=== PATIENT | male | born 1960 | race Caucasian/White ===

== ENCOUNTER 2023-01-27 12:57 | Observation (INO) | payer OTHER, SELFPAY ==
[2023-01-27] VITALS (9 sets, daily range): BP systolic 129–161; BP diastolic 67–86; PULSE 68–89; RESP 16–20; TEMP 36.1–37; O2SAT 95–98; BMI 41.5
--- OUTSIDE RECORDS SUMMARY | 2023-01-27 06:58 | XMS RPT_ITS | CCD ---
Author Name Unknown Address [address] [place] [address] Organization [facility] Care Team Providers Care Security Incident Response Engineer Name Role Phone PABLO AYALA, ONEIL Primary Care Physician MICHAEL AYALA, LUZ MARINA Attending Unavailable PABLO AYALA, ONEIL Primary Care Unavailable PABLO AYALA, ONEIL Primary Care Unavailable LISETH AYALA, BENNY Clemente Attending Unavailable PABLO AYALA, ONEIL Primary Care Unavailable JORGE LUIS AYALA, NEREYDA Burton Attending Unavail able MICHAEL AYALA, LUZ MARINA Attending Unavailable PABLO AYALA, ONEIL Primary Care Unavailable Medications Current Medications Medication Drug Class(es) Dates Sig (Normalized) Sig (Original) furosemide 40 mg oral tablet (2 sources) Loop Diuretic Start: 01-10-2023 take 1 tablet by mouth twice daily furosemide 40 mg oral tablet TAKE 1 TABLET BY MOUTH TWICE A DAY Start Date: 01/10/23 Status: Ordered losartan potassium 50 mg oral tablet (2 sources) Angiotensin 2 Receptor Aren Start: 01-10-2023 take 2 tablets by mouth once daily losartan 50 mg oral tablet TAKE 2 TABLETS BY MOUTH EVERY DAY. Start Date: 01/10/23 Status: Ordered tamsulosin hydrochloride 0.4 mg oral capsule (2 sources) alpha-Adrenergic Aren Start: 01-10-2023 End: 02-09-2023 Flomax 0.4 mg oral capsule Dose : 0.4 mg = 1 cap(s), PO, Daily, # 30 cap(s), 0 Refill(s) Start Date: 01/10/23 Stop Date: 02/09/23 Status: Ordered Problems Problem Classification Problem Date Documented Da te Episodic/Chronic Diabetes mellitus without complication (2 sources) Hyperglycemia, unspecified; Translations: [Hyperglycemia, unspecified] Onset: 09-15-2022 Episodic Results Test Name Value Interpretation Reference Range Facil ity Vital Signs Date Time Vital Sign Value Performing Clinician Linus diego 01-10-2023 07:23-0500 Body height 182.9 cm BENNY CHILDERS MD [facility] 01-10-2023 07:23-0500 Body temperature 98.42 [degF] BENNY CHILDERS MD [facility] 01-10-2023 07:23-0500 Body weight 134.1 kg BENNY CHILDERS MD [facility] 01-10-2023 07:23-0500 Diastolic Blood Pressure Non-Invasive 82 mm[Hg] BENNY CHILDERS MD [facility] 01-10-2023 07:23-0500 Heart rate 82 /min BENNY CHILDERS MD [facility] 01-10-2023 07:23-0500 Respiratory rate 18 /min BENNY CHILDERS MD [facility] 01-10-2023 07:23-0500 Systolic Blood Pressure Non-Invasive 201 mm[Hg] BENNY CHILDERS MD [facility] Encounters Encounter Date Encounter Type Care Provider Facility Start: 01-11-2023 End: 01-11-2023 Emergency department patient visit ONEIL SHAH MD Facility:B Start: 01-11-2023 End: 01-11-2023 Emergency department patient visit NEREYDA KANG MD [facility] Start: 01-10-2023 End: 01-10-2023 Emergency department patient visit ONIEL SHAH MD Facility:B Start: 01-10-2023 End: 01-10-2023 Emergency department patient visit BENNY CHILDERS MD [facility] Start: 09-15-2022 End: 09-20-2022 ambulatory LUZ MARINA MICHAEL MD Facility:A Start: 09-15-2022 End: 09-20-2022 Encounter for general adult medical examination without abnormal findings LUZ MARINA RODRIGUEZ MD Facility:A Procedures Date Procedure Procedure Detail Performing Clinician None (qualifier value) JOSE CHILDERS MD Payers Date Payer Category Payer Unknown [id number] 1960 Unknown [id number] 1960 Unknown [id number] 1960 Unknown [id number] 1960 Unknown [id number] Social History Date Type Detail Facility Tobacco smoking status Smokes to bacco daily (finding) [facility] Sex Assigned At Sex [facility] Functional Status Date Assessment Result Facility 01-10-2023 Functional Status Activity Status ADL Res ting [facility] Mental Status Date Assessment Result Facility 01-10-2023 Mental Status Orientation Oriented x 4 [facility] Clinical Note 01-12-2023 Note Date & Type Note Facility 01-12-2023 Note . MICRO - Microbiology PROCEDURE: Urine Culture [*1] SOURCE: Urine, Clean Catch BODY SITE: COLLECTED DATE/TIME: 01/10/2023 07:20 EST RECEIVED DATE/TIME: 01/10/2023 14:12 EST START DATE/TIME: 01/10/2023 14:12 EST FREE TEXT SOURCE: FINAL REPORTS Final Report [] Verified Date/Time/Personnel: 01/12/2023 07:28 EST No growth at 48 hours. PRELIMINARY REPORTS Preliminary Report [] Verified Date/Time/Personnel: 01/11/2023 10:32 EST No growth to date Performing Locations *1: This test was performed at: [facility], [address] [place], [address]- , [place] [facility] ([place]) Evaluation + Plan note 01-10-2023 Note Date & Type Note Facility 01-10-2023 Evaluation + Plan note Diagnostic Tests PendingUrine Culture 01/10/23 [facility] Discharge instructions 01-10-2023 Note Date & Type Note Facility 01-10-2023 Hospital Discharg e instructions Patient Education 01/10/2023 07:45:50 High Blood Pressure, Established, Out of Control Uncontrolled High Blood Pressure (Established) Your blood pressure was unusually high today. This can occur if you ve missed doses of your blood pressure medicine. Or it can happen if you are taking other medicines. These include some asthma inhalers, decongestants, diet pills, and street drugs like cocaine and amphetamine. Other causes include: Weight gain More salt in your diet Smoking Caffeine Your blood pressure can also rise if you are emotionally upset or in intense pain. It may go back to normal after a period of rest. Blood pressure measurements are given as 2 numbers. Systolic blood pressure is the upper number. This is the pressure when the heart contracts. Diastolic blood pressure is the lower number. This is the pressure when the heart relaxes between beats. You will see your blood pressure readings written together. For example, a person with a systolic pressure of 118 and a diastolic pressure of 78 will have 118/78 written in the medical record. To be high blood pressure, the numbers must be higher when tested over a period of time. Blood pressure is categorized as normal, elevated, or stage 1 or stage 2 high blood pressure: Normal blood pressure is systolic of less than 120 and diastolic of less than 80 (120/80) Elevated blood pressure is systolic of 120 to 129 and diastolic less than 80 Stage 1 high blood pressure is systolic is 130 to 139 or diastolic between 80 to 89 Stage 2 high blood pressure is when systolic is 140 or higher or the diastolic is 90 or higher Uncontrolled high blood pressure can cause serious health problems. It raises your risk for heart attack, stroke, and heart failure. In general, if you have high blood pressure, keeping your blood pressure below 130/80 mmHg may help prevent these problems. Your healthcare provider may prescribe medicine to help control blood pressure if lifestyle changes are not enough. Home care It s important to take steps to lower your blood pressure. If you are taking blood pressure medicine, the guidelines below may help you need less or no medicines in the future. Start a weight-loss program if you are overweight. Cut back on the amount of salt in your diet: oAvoid high-salt foods like olives, pickles, smoked meats, and salted potato chips. oDon t add salt to your food at the table. oUse only small amounts of salt when cooking. Start an exercise program. Talk with your healthcare provider about what exercise program is best for you. It doesn t have to be difficult. Even brisk walking for 20 minutes 3 times a week is a good form of exercise. Avoid medicines that stimulates the heart. This includes many igdd-psa-lhmgzyu cold and sinus decongestant pills and sprays, as well as diet pills. Check the warnings about high blood pressure on the label. Before purchasing any cxtf-oie-sncrrcs medicines or supplements, always ask the pharmacist about the product's potential interaction with your high blood pressure and your medicines. Stimulants such as amphetamine or cocaine could be lethal for someone with high blood pressure. Never take these. Limit how much caffeine you drink. Or switch to noncaffeinated beverages. Stop smoking. If you are a long-time smoker, this can be hard. Enroll in a stop-smoking program to make it more likely that you will succeed. Talk with your provider about ways to quit. Learn how to handle stress better. This is an important part of any program to lower blood pressure. Learn ways to relax. These include meditation, yoga, and biofeedback. If medicines were prescribed, take them exactly as directed. Missing doses may cause your blood pressure to get out of control. If you miss a dose or doses of your medicines, check with your healthcare provider or pharmacist about what to do. Consider buying an automatic blood pressure machine. Your provider may recommend a certain type. You can get one of these at most pharmacies. Measure your blood pressure twice a day, in the morning, and in the late afternoon. Keep a written record of your home blood pressure readings and take the record to your medical appointments. Here are some additional guidelines on home blood pressure monitoring from the [place] [employer]. Don't smoke or drink coffee for 30 minutes Go to the bathroom before the test. Relax for 5 minutes before taking the measurement. Sit correctly. Be sure your back is supported. Don't sit on a couch or soft chair. Uncross your feet and place them flat on the floor. Place your arm on a solid, flat surface like a table with the upper arm at heart level. Make certain the middle of the cuff is directly above the bend of the elbow. Check the monitor's instruction manual for an illustration. Take multiple readings. When you measure, take 2 or 3 readings one minute apart and record all of the results. Take your blood pressure at the same time every day, or as your healthcare provider recommends. Record the date, time, and blood pressure reading. Take the record with you to your next appointment. If your blood pressure monitor has a built-in memory, simply take the monitor with you to your next appointment. Call your provider if you have several high readings. Don't be frightened by a single high reading, but if you get several high readings, check in with your healthcare provider. Note: When blood pressure reaches a systolic (top number) of 180 or higher or a diastolic (bottom number) of 110 or higher, emergency medical treatment is required. Call your healthcare provider immediately. Follow-up care Regular visits to your own healthcare provider for blood pressure and medicine checks are an important part of your care. Make a follow-up appointment as directed. Bring the record of your home blood pressure readings to the appointment. When to seek medical advice Call your healthcare provider right away if any of these occur: Blood pressure reaches a systolic (top number) of 180 or higher or diastolic (bottom number) of 110 or higher, emergency medical treatment is required. Chest, arm, shoulder, neck, or upper back pain Shortness of breath Severe headache Throbbing or rushing sound in the ears Nosebleed Extreme drowsiness, confusion, or fainting Dizziness or dizziness with spinning sensation (vertigo) Weakness in an arm or leg or on one side of the face Trouble speaking or seeing [id number] [employer]. [address] [place] [address], [place] [address]. All rights reserved. This information is not intended as a substitute for professional medical care. Always follow your healthcare professional's instructions. 01/10/2023 07:45:10 Urinary Retention, Male Urinary Retention (Male) Urinary retention is the medical term for difficulty or inability to pass urine, even though your bladder is full. Causes The most common cause of urinary retention in men is the bladder outlet being blocked. This can be due to an enlarged prostate gland or a bladder infection. Certain medicines can also cause this problem. This condition is more likely to occur as men get older. Symptoms Common symptoms of urinary retention include: Pain (not experienced by everyone) Frequent urination Feeling that the bladder is still full after urinating Incontinence (not being able to control the release of urine) Swollen abdomen Treatment This condition is treated by inserting a tube (catheter) into the bladder to drain the urine. This provides immediate relief. The catheter may need to stay in place for a few days. The catheter has a balloon on the tip, which is inflated after insertion. This prevents the catheter from falling out. Home care If you were given antibiotics, take them until they are used up, or your healthcare provider tells you to stop. It is important to finish the antibiotics even though you feel better. This is to make sure your infection has cleared. If a catheter was left in place, it is important to keep bacteria from getting into the collection bag. Don't disconnect the catheter from the collection bag. Use a leg band to secure the drainage tube, so it does not pull on the catheter. Drain the collection bag when it becomes full using the drain spout at the bottom of the bag. Don't pull on or try to remove your catheter. This will injure your urethra. The catheter must be removed by a healthcare provider. Follow-up care Follow up with your healthcare provider, or as advised. If a catheter was left in place, it can usually be removed within 3 to 7 days. Some conditions require the catheter to stay in longer. Your healthcare provider will tell you when to return to have the catheter removed. When to seek medical advice Call your healthcare provider right away if any of these occur: Fever of 100.4 F (38 C) or higher, or as directed by your healthcare provider Bladder or lower-abdominal pain or fullness Abdominal swelling, nausea, vomiting, or back pain Blood or urine leakage around the catheter Bloody urine coming from the catheter (if a new symptom) Weakness, dizziness, or fainting Confusion or change in usual level of alertness If a catheter was left in place, return if: oCatheter falls out oCatheter stops draining for 6 hours [id number] [employer]. [address] [place] [address]. All rights reserved. This information is not intended as a substitute for professional medical care. Always follow your healthcare professional's instructions. 01/10/2023 07:45:09 Camejo Catheter, Care Camejo Catheter Care A Camejo catheter is a rubber tube that is placed through the urethra (opening where urine comes out) and into the bladder. This helps drain urine from the bladder. There is a small balloon on the end of the tube that is inflated after insertion. This keeps the catheter from sliding out of the bladder. A Camejo catheter is used to treat urinary retention (unable to pass urine). It is also used when there is incontinence (loss of bladder control). Home care Finish taking any prescribed antibiotic even if you are feeling better before then. It is important to keep bacteria from getting into the collection bag. Do not disconnect the catheter from the collection bag. Use a leg band to secure the drainage tube, so it does not pull on the catheter. Drain the collection bag when it becomes full using the drain spout at the bottom of the bag. Do not try to pull or remove your catheter. This will injure your urethra. It must be removed by your healthcare provider or nurse. Follow-up care Follow up with your healthcare provider as advised for repeat urine testing and catheter removal or replacement. When to seek medical advice Call your healthcare provider right away if any of these occur: Fever of 100.4 F (38 C) or higher, or as directed by your healthcare provider Bladder pain or fullness Abdominal swelling, nausea or vomiting, or back pain Blood or urine leakage around the catheter Bloody urine coming from the catheter (if a new symptom) Catheter falls out Catheter stops draining for 6 hours Weakness, dizziness, or fainting [id number] [employer]. [address] [place] [address]. All rights reserved. This information is not intended as a substitute for professional medical care. Always follow your healthcare professional's instructions. Follow Up Care 01/10/2023 06:58:48 With:CIARA LIU MD, [facility] Address: [address] [place] [phone] When:2-4 days With:Go to emergency room if symptoms worsen Address:Unknown When:2-4 days [facility] Clinical Note 01-10-2023 Note Date & Type Note Facility 01-10-2023 Note Discharge Instructions Thank you for allowing [facility] to assist you with your healthcare needs. The following is important discharge information regarding your hospital visit. Diagnosis from Today's Visit Oliguria What to Do Next Instructions from Your Care Team Resume your blood pressure medication. No qualifying data available. Post Acute Orders No qualifying data available. You Need to Schedule the Following Appointments Follow Up with CIARA LIU MD, [facility] When Within 2-4 days Where: [address] [place] [phone] Follow Up with Go to emergency room if symptoms worsen When Within 2-4 days Allergies [facility] Medications Please ask your primary doctor or pharmacist before taking any other medication not listed, including over the counter drugs, herbal medications, vitamins and or supplements as they may interact with your home medications. What How Much When Instructions Last Dose New tamsulosin (Flomax 0.4 mg oral capsule) 1 cap by mouth Every day Duration: 30 Days Printed Prescription Unchanged furosemide (furosemide 40 mg oral tablet) TAKE 1 TABLET BY MOUTH TWICE A DAY Unchanged losartan (losartan 50 mg oral tablet) TAKE 2 TABLETS BY MOUTH EVERY DAY. Please take this list to your next doctor s visit. Bring all medications you take, including over the counter medications, herbals and other supplements with you to your doctor s visit. Patients and families are reminded to discard old lists and to update any records with all medication providers or retail pharmacies. Medication Leaflets tamsulosin Flomax Cu l es la informaci n m s importante que colin saber sobre tamsulosin? Utilice solamente seg n lo indicado. Informe a white m dico si est utilizando otros medicamentos, si padece alguna enfermedad o si tiene alg n tipo de alergia. Qu es tamsulosin? Tamsulosin se utiliza para el tratamiento de la hiperplasia prost rachel benigna (pr stata agrandada). Tamsulosin no est aprobado para utilizarse en mujeres o ni os. Tamsulosin puede tambi n utilizarse para fines no mencionados en esta gu a del medicamento. Qu cuestiones deber a preguntar al profesional de la daniel antes de dilcia tamsulosin? No deber utilizar tamsulosin si es al rgico a laila medicamento. Informe a white m dico si alguna vez moore tenido: c ncer de la pr stata; presi n arterial baja; fior alergia a las sulfas; o enfermedad del h gado o ri n. Tamsulosin puede afectar mary pupilas. Si va a realizar fior cirug a de cataratas, informe al cirujano de que est utilizando laila medicamento. Consulte con white m dico sobre las pruebas para detectar c ncer de la pr stata antes y con el tratamiento con tamsulosin. Tamsulosin no est aprobado para utilizarse en mujeres. C mo colin dilcia tamsulosin? Siga todas las instrucciones de la etiqueta de white receta y mitali todas las gu as del medicamento u hojas de instrucci n. Utilice el medicamento exactamente jagjit viene indicado. Tamsulosin se franklin por lo general fior vez al d a, 30 minutos despu s de la misma comida cada d a. Trague la c psula entera y no la triture, mastique, rompa o rachel. Necesitar comprobar white presi n arterial con frecuencia. Si josé de utilizar laila medicamento, no vuelva a utilizarlo sin consentimiento m dico. Mantenga el medicamento isaac cerrado a temperatura ambiente, fuera de la humedad y del calor. Qu sucede si me regi fior dosis? [place] el medicamento kamara pronto pueda, adilia s ltese la dosis olvidada si ya drew es la hora de dilcia la pr xima dosis. No tome dos dosis a la vez. Si josé de utilizar laila medicamento por varios d as seguidos, no vuelva a utilizarlo sin consentimiento m dico. Qu sucede si beti fior sobredosis? Busque atenci n m dica de emergencia o llame a la l leny de [facility] al . Qu colin evitar mientras beti tamsulosin? Evite manejar o realizar actividades peligrosas antes de saber c mo puede afectarle laila medicamento, ya que mary reacciones podr an verse afectadas. Evite levantarse muy r pido si est sentado o acostado, ya que puede sentirse mareado. Cu les son los posibles efectos secundarios de tamsulosin? Busque atenci n m dica de emergencia si observa signos de fior reacci n al rgica (ronchas, dificultad para respirar, hinchaz n en la crys o garganta) o fior reacci n grave en la piel (fiebre, dolor de garganta, quemaz n en los ojos, dolor en la piel, sarpullido owusu o p rpura con ampollas y descamaci n). Es posible que tamsulosin reduzca white presi n arterial y cause mareos o desmayo, especialmente cuando comience a tomarla o white dosis cambia. Deje de utilizar tamsulosin y llame a white m dico de inmediato si tiene: sensaci n de desvanecimiento, jagjit si se fuese a desmayar; o fior erecci n dolorosa que dure 4 horas o m s. Los efectos secundarios comunes pueden incluir: eyaculaci n anormal, reducci n en la cantidad de semen; mareos, somnolencia, debilidad; nariz mocosa o congestionada, dolor de garganta, tos; dolor de espalda, dolor de pecho, dolor de nicole; n useas, diarrea; problemas en los dientes; visi n borrosa; problemas para dormir (insomnio); o disminuci n del inter s en las relaciones sexuales. Esta lista no incluye todos los efectos secundarios y es posible que aparezcan otros s ntomas. Llame a white m dico para obtener consejos e informaci n m dica relacionada con estos efectos secundarios. Tambi n puede informar acerca de efectos secundarios llamando al FDA al [phone]. Qu otros f rmacos afectar n a tamsulosin? A veces no es seguro utilizar determinados medicamentos al mismo tiempo. Algunos f rmacos pueden afectar a los niveles sangu neos de los otros medicamentos que est utilizando, lo que podr a aumentar los efectos secundarios o hacer que dichos medicamentos fuesen menos eficaces. Informe a white m dico sobre los medicamentos que franklin actualmente. Muchos f rmacos pueden afectar a tamsulosin, especialmente: cimetidine; medicamentos para tratar la impotencia o la hipertensi n arterial pulmonar--avanafil (Stendra), sildenafil (Viagra, Revatio), tadalafil (Adcirca, Cialis), o vardenafil (Levitra, Staxyn); o f rmacos para el tratamiento de la presi n arterial santa o para un trastorno de la pr stata--alfuzosin, doxazosin, prazosin, terazosin, silodosin. Esta lista no est completa, puesto que muchos otros f rmacos pueden afectar a tamsulosin. Quinn[place]ec incluye los medicamentos obtenidos con o sin receta, vitaminas y productos herbarios. No todas las interacciones posibles se enumeran aqu . D nde puedo obtener m s informaci n? White m dico o farmac utico puede ofrecerle m s informaci n acerca de tamsulosin. Recuerde, mantenga sta y todas las otras medicinas fuera del alcance de los ni os, no comparta nunca mary medicinas con otros, y use laila medicamento solo para la condici n por la que fue recetada. Se moore hecho todo lo posible para que la informaci n que proviene de [employer]') sea precisa, actual, y completa, adilia no se hace garant a de margie. La informaci n sobre el medicamento incluida aqu puede tener nuevas recomendaciones. La informaci n preparada por [employer] se moore creado para uso del profesional de la daniel y para el consumidor en los [place] de [facility] [place] y por lo cual [employer] no certifica que el uso fuera de los [place] sea apropiado, a menos que se mencione espec ficamente lo cual. La informaci n de [employer] sobre drogas no sanciona drogas, ni diagn stica al paciente o recomienda terapia. La informaci n de [employer] sobre drogas sirve jagjit fior tegan de informaci n dise ada para la ayuda del profesional de la daniel licenciado en el cuidado de mary pacientes y/o para servir al consumidor que reciba laila servicio jagjit un suplemento a, y no jagjit sustituto de la competencia, experiencia, conocimiento y opini n del profesional de la daniel. La ausencia en allan de fior advertencia para fior droga o combinaci n de drogas no debe, de ninguna forma, interpretarse jagjit que la droga o la combinaci n de drogas radha seguras, efectivas, o apropiadas para cualquier paciente. [employer] no se responsabiliza por kait n aspecto del cuidado m dico que reciba con la ayuda de la informaci n que proviene de [employer]. La informaci n incluida aqu no se moore creado con la intenci n de cubrir todos los usos posibles, instrucciones, precauciones, advertencias, interacciones con otras drogas, reacciones al rgicas, o efectos secundarios. Si usted tiene alguna pregunta acerca de las drogas que est tomando, consulte con white m dico, enfermera, o farmac utico. Copyright 5281-9438 [employer]. Versi n: 11.. Revisado: 04/29/2022. tamsulosin (luna alberto FER sin) Flomax What is the most important information I should know about tamsulosin? Use only as directed. Tell your doctor if you use other medicines or have other medical conditions or allergies. What is tamsulosin? Tamsulosin is used to treat symptoms of benign prostatic hyperplasia (enlarged prostate). Tamsulosin is not approved for use in women or children. Tamsulosin may also be used for purposes not listed in this medication guide. What should I discuss with my healthcare provider before taking tamsulosin? You should not use tamsulosin if you are allergic to it. Tell your doctor if you have ever had: prostate cancer; low blood pressure; an allergy to sulfa drugs; or liver or kidney disease. Tamsulosin can affect your pupils. If you have cataract surgery, tell the surgeon you use this medicine. Ask your doctor about prostate cancer screening before and while taking tamsulosin. Tamsulosin is not approved for use in women. How should I take tamsulosin? Follow all directions on your prescription label and read all medication guides or instruction sheets. Use the medicine exactly as directed. Tamsulosin is usually taken once a day, within 30 minutes after the same meal each day. Swallow the capsule whole and do not crush, chew, break, or open it. Your blood pressure will need to be checked often. If you stop using this medicine, do not start it again without your doctor's advice. Store tightly closed at room temperature, away from moisture and heat. What happens if I miss a dose? Take the medicine as soon as you can, but skip the missed dose if it is almost time for your next dose. Do not take two doses at one time. If you stop using this medicine for several days in a row, do not start it again without your doctor's advice. What happens if I overdose? Seek emergency medical attention or call the Poison Help line at . What should I avoid while taking tamsulosin? Avoid driving or hazardous activity until you know how this medicine will affect you. Your reactions could be impaired. Avoid getting up too fast from a sitting or lying position, or you may feel dizzy. What are the possible side effects of tamsulosin? Get emergency medical help if you have signs of an allergic reaction (hives, difficult breathing, swelling in your face or throat) or a severe skin reaction (fever, sore throat, burning eyes, skin pain, red or purple skin rash with blistering and peeling). Tamsulosin may lower your blood pressure and may cause dizziness or fainting, especially when you first start taking it or your dose changes. Stop using tamsulosin and call your doctor at once if you have: a light-headed feeling, like you might pass out; or a painful erection that lasts 4 hours or longer. Common side effects may include: abnormal ejaculation, decreased amount of semen; dizziness, drowsiness, weakness; runny or stuffy nose, sore throat, cough; back pain, chest pain, headache; nausea, diarrhea; tooth problems; blurred vision; sleep problems (insomnia); or decreased interest in sex. This is not a complete list of side effects and others may occur. Call your doctor for medical advice about side effects. You may report side effects to FDA at 1-462-XYU-5953. What other drugs will affect tamsulosin? Sometimes it is not safe to use certain medicines at the same time. Some drugs can affect your blood levels of other drugs you use, which may increase side effects or make the medicines less effective. Tell your doctor about all your current medicines. Many drugs can affect tamsulosin, especially: cimetidine; medicine to treat impotence or pulmonary arterial hypertension--avanafil (Stendra), sildenafil (Viagra, Revatio), tadalafil (Adcirca, Cialis), or vardenafil (Levitra, Staxyn); or drugs to treat high blood pressure or a prostate disorder--alfuzosin, doxazosin, prazosin, terazosin, silodosin. This list is not complete and many other drugs may affect tamsulosin. This includes prescription and rvuo-gdd-bcmkrea medicines, vitamins, and herbal products. Not all possible drug interactions are listed here. Where can I get more information? Your doctor or pharmacist can provide more information about tamsulosin. Remember, keep this and all other medicines out of the reach of children, never share your medicines with others, and use this medication only for the indication prescribed. Every effort has been made to ensure that the information provided by [employer]. ('[employer]') is accurate, up-to-date, and complete, but no guarantee is made to that effect. Drug information contained herein may be time sensitive. [employer] information has been compiled for use by healthcare practitioners and consumers in the [place] and therefore [employer] does not warrant that uses outside of the [place] are appropriate, unless specifically indicated otherwise. [employer]'s drug information does not endorse drugs, diagnose patients or recommend therapy. [employer] drug information is an informational resource designed to assist licensed healthcare practitioners in caring for their patients and/or to serve consumers viewing this service as a supplement to, and not a substitute for, the expertise, skill, knowledge and judgment of healthcare practitioners. The absence of a warning for a given drug or drug combination in no way should be construed to indicate that the drug or drug combination is safe, effective or appropriate for any given patient. [employer] does not assume any responsibility for any aspect of healthcare administered with the aid of information [employer] provides. The information contained herein is not intended to cover all possible uses, directions, precautions, warnings, drug interactions, allergic reactions, or adverse effects. If you have questions about the drugs you are taking, check with your doctor, nurse or pharmacist. Copyright 8433-7252 [employer]. Version: 11.. Revision Date: 04/29/2022. Education Materials Uncontrolled High Blood Pressure (Established) Your blood pressure was unusually high today. This can occur if you ve missed doses of your blood pressure medicine. Or it can happen if you are taking other medicines. These include some asthma inhalers, decongestants, diet pills, and street drugs like cocaine and amphetamine. Other causes include: Weight gain More salt in your diet Smoking Caffeine Your blood pressure can also rise if you are emotionally upset or in intense pain. It may go back to normal after a period of rest. Blood pressure measurements are given as 2 numbers. Systolic blood pressure is the upper number. This is the pressure when the heart contracts. Diastolic blood pressure is the lower number. This is the pressure when the heart relaxes between beats. You will see your blood pressure readings written together. For example, a person with a systolic pressure of 118 and a diastolic pressure of 78 will have 118/78 written in the medical record. To be high blood pressure, the numbers must be higher when tested over a period of time. Blood pressure is categorized as normal, elevated, or stage 1 or stage 2 high blood pressure: Normal blood pressure is systolic of less than 120 and diastolic of less than 80 (120/80) Elevated blood pressure is systolic of 120 to 129 and diastolic less than 80 Stage 1 high blood pressure is systolic is 130 to 139 or diastolic between 80 to 89 Stage 2 high blood pressure is when systolic is 140 or higher or the diastolic is 90 or higher Uncontrolled high blood pressure can cause serious health problems. It raises your risk for heart attack, stroke, and heart failure. In general, if you have high blood pressure, keeping your blood pressure below 130/80 mmHg may help prevent these problems. Your healthcare provider may prescribe medicine to help control blood pressure if lifestyle changes are not enough. Home care It s important to take steps to lower your blood pressure. If you are taking blood pressure medicine, the guidelines below may help you need less or no medicines in the future. Start a weight-loss program if you are overweight. Cut back on the amount of salt in your diet: oAvoid high-salt foods like olives, pickles, smoked meats, and salted potato chips. oDon t add salt to your food at the table. oUse only small amounts of salt when cooking. Start an exercise program. Talk with your healthcare provider about what exercise program is best for you. It doesn t have to be difficult. Even brisk walking for 20 minutes 3 times a week is a good form of exercise. Avoid medicines that stimulates the heart. This includes many vark-ven-idsiows cold and sinus decongestant pills and sprays, as well as diet pills. Check the warnings about high blood pressure on the label. Before purchasing any bakf-ncm-smyyjfj medicines or supplements, always ask the pharmacist about the product's potential interaction with your high blood pressure and your medicines. Stimulants such as amphetamine or cocaine could be lethal for someone with high blood pressure. Never take these. Limit how much caffeine you drink. Or switch to noncaffeinated beverages. Stop smoking. If you are a long-time smoker, this can be hard. Enroll in a stop-smoking program to make it more likely that you will succeed. Talk with your provider about ways to quit. Learn how to handle stress better. This is an important part of any program to lower blood pressure. Learn ways to relax. These include meditation, yoga, and biofeedback. If medicines were prescribed, take them exactly as directed. Missing doses may cause your blood pressure to get out of control. If you miss a dose or doses of your medicines, check with your healthcare provider or pharmacist about what to do. Consider buying an automatic blood pressure machine. Your provider may recommend a certain type. You can get one of these at most pharmacies. Measure your blood pressure twice a day, in the morning, and in the late afternoon. Keep a written record of your home blood pressure readings and take the record to your medical appointments. Here are some additional guidelines on home blood pressure monitoring from the [place] [employer]. Don't smoke or drink coffee for 30 minutes Go to the bathroom before the test. Relax for 5 minutes before taking the measurement. Sit correctly. Be sure your back is supported. Don't sit on a couch or soft chair. Uncross your feet and place them flat on the floor. Place your arm on a solid, flat surface like a table with the upper arm at heart level. Make certain the middle of the cuff is directly above the bend of the elbow. Check the monitor's instruction manual for an illustration. Take multiple readings. When you measure, take 2 or 3 readings one minute apart and record all of the results. Take your blood pressure at the same time every day, or as your healthcare provider recommends. Record the date, time, and blood pressure reading. Take the record with you to your next appointment. If your blood pressure monitor has a built-in memory, simply take the monitor with you to your next appointment. Call your provider if you have several high readings. Don't be frightened by a single high reading, but if you get several high readings, check in with your healthcare provider. Note: When blood pressure reaches a systolic (top number) of 180 or higher or a diastolic (bottom number) of 110 or higher, emergency medical treatment is required. Call your healthcare provider immediately. Follow-up care Regular visits to your own healthcare provider for blood pressure and medicine checks are an important part of your care. Make a follow-up appointment as directed. Bring the record of your home blood pressure readings to the appointment. When to seek medical advice Call your healthcare provider right away if any of these occur: Blood pressure reaches a systolic (top number) of 180 or higher or diastolic (bottom number) of 110 or higher, emergency medical treatment is required. Chest, arm, shoulder, neck, or upper back pain Shortness of breath Severe headache Throbbing or rushing sound in the ears Nosebleed Extreme drowsiness, confusion, or fainting Dizziness or dizziness with spinning sensation (vertigo) Weakness in an arm or leg or on one side of the face Trouble speaking or seeing 5824-[address] [employer] [place] [address]. All rights reserved. This information is not intended as a substitute for professional medical care. Always follow your healthcare professional's instructions. Urinary Retention (Male) Urinary retention is the medical term for difficulty or inability to pass urine, even though your bladder is full. Causes The most common cause of urinary retention in men is the bladder outlet being blocked. This can be due to an enlarged prostate gland or a bladder infection. Certain medicines can also cause this problem. This condition is more likely to occur as men get older. Symptoms Common symptoms of urinary retention include: Pain (not experienced by everyone) Frequent urination Feeling that the bladder is still full after urinating Incontinence (not being able to control the release of urine) Swollen abdomen Treatment This condition is treated by inserting a tube (catheter) into the bladder to drain the urine. This provides immediate relief. The catheter may need to stay in place for a few days. The catheter has a balloon on the tip, which is inflated after insertion. This prevents the catheter from falling out. Home care If you were given antibiotics, take them until they are used up, or your healthcare provider tells you to stop. It is important to finish the antibiotics even though you feel better. This is to make sure your infection has cleared. If a catheter was left in place, it is important to keep bacteria from getting into the collection bag. Don't disconnect the catheter from the collection bag. Use a leg band to secure the drainage tube, so it does not pull on the catheter. Drain the collection bag when it becomes full using the drain spout at the bottom of the bag. Don't pull on or try to remove your catheter. This will injure your urethra. The catheter must be removed by a healthcare provider. Follow-up care Follow up with your healthcare provider, or as advised. If a catheter was left in place, it can usually be removed within 3 to 7 days. Some conditions require the catheter to stay in longer. Your healthcare provider will tell you when to return to have the catheter removed. When to seek medical advice Call your healthcare provider right away if any of these occur: Fever of 100.4 F (38 C) or higher, or as directed by your healthcare provider Bladder or lower-abdominal pain or fullness Abdominal swelling, nausea, vomiting, or back pain Blood or urine leakage around the catheter Bloody urine coming from the catheter (if a new symptom) Weakness, dizziness, or fainting Confusion or change in usual level of alertness If a catheter was left in place, return if: oCatheter falls out oCatheter stops draining for 6 hours 8973-0856 [employer]. [address] [place] [address]. All rights reserved. This information is not intended as a substitute for professional medical care. Always follow your healthcare professional's instructions. Camejo Catheter Care A Camejo catheter is a rubber tube that is placed through the urethra (opening where urine comes out) and into the bladder. This helps drain urine from the bladder. There is a small balloon on the end of the tube that is inflated after insertion. This keeps the catheter from sliding out of the bladder. A Camejo catheter is used to treat urinary retention (unable to pass urine). It is also used when there is incontinence (loss of bladder control). Home care Finish taking any prescribed antibiotic even if you are feeling better before then. It is important to keep bacteria from getting into the collection bag. Do not disconnect the catheter from the collection bag. Use a leg band to secure the drainage tube, so it does not pull on the catheter. Drain the collection bag when it becomes full using the drain spout at the bottom of the bag. Do not try to pull or remove your catheter. This will injure your urethra. It must be removed by your healthcare provider or nurse. Follow-up care Follow up with your healthcare provider as advised for repeat urine testing and catheter removal or replacement. When to seek medical advice Call your healthcare provider right away if any of these occur: Fever of 100.4 F (38 C) or higher, or as directed by your healthcare provider Bladder pain or fullness Abdominal swelling, nausea or vomiting, or back pain Blood or urine leakage around the catheter Bloody urine coming from the catheter (if a new symptom) Catheter falls out Catheter stops draining for 6 hours Weakness, dizziness, or fainting [id number] [employer]. [address] [place] [address]. All rights reserved. This information is not intended as a substitute for professional medical care. Always follow your healthcare professional's instructions. Additional Information VACCINATE! IT SAVES LIVES! Members of the community who have not yet received the COVID-19 vaccine and would like to receive it can visit one of [facility] vaccine clinics. There are many vaccine clinic locations within the [facility]. For locations and available times, please visit [email or web address] It is important to note that some COVID mobile vaccine clinics are held outdoors and may be canceled in rainy or stormy conditions. To learn more about pediatric vaccinations (ages 5-11), we invite you to visit the [facility] webpage. [email or web address] To learn more about the COVID-19 vaccine, we invite you to visit the CDC website for a list of frequently asked questions. https://www.cdc.gov/coronavirus/2019-n cov/vaccines/faq.html [employer] Patient Portal Access Instructions: Stay connected with your healthcare team and access your personal medical information anytime with the [employer] Patient Portal. If you would like a full copy of your medical records please contact the [facility] Medical Records Department Monday through Gerardo between 8a.m. and 4:30p.m. Please follow the directions below to access the portal: 1.Access the email account you provided upon registration to the [facility].2.Look for an invitation email from [facility].3.Open the email and access the invitation link: Accept Invitation to [employer]4.Fill in the required burgess to create your account. Sign into [email or web address] with your username and password that you created in the above steps to stay up to date. You can then view a summary of results, a summary of your visits, and the ability to download your summaries to your computer or send the information securely to a physician. Remember that your healthcare information is confidential, so carefully consider who you will allow to register on the [employer] Patient Portal for access to your information. You can also access the [employer] Patient Portal on the [employer]. Simply click on Health Records under Health Data and then click on the [employer] logo. HOW TO SAFELY DISPOSE OF PRESCRIPTION MEDICATIONS Please use one of the following methods to safely dispose of your unused medications. 1.Use a drug disposal kit: the drug disposal pouch allows you to safely discard your old and unused drugs. Ask your nurse to give you one when you are discharged.2.Visit a local take-back location: Many local pharmacies and police departments have programs that collect old and unwanted prescription drugs. Call your local pharmacy or go to http://[email or web address].com/9Q7Rv6g to find one close to you.3.Make use of household items: Use cat litter or old coffee grounds to dispose medications if other options are not available. Mix your drugs with these household products, seal them in an airtight container and throw it into the garbage. Call [facility]: [phone] to be sure your drugs can be disposed of in this way. Some medicines may require a different approach.4.Never flush your medications down the toilet. IF YOU HAVE BEEN PRESCRIBED AN OPIOIDS FOR PAIN If you have been prescribed an opioid (such as hydrocodone, oxycodone or morphine), it is critical to understand the possible side effects and risks of opioid pain medications. Even when taken as directed, opioids can have several side effects including: Tolerance, meaning you might need to take more of a medication for the same pain relief. Nausea, vomiting and/or constipation. Sleepiness, dizziness, dry mouth, confusion, depression or itching. Physical dependence, meaning you have withdrawal symptoms when a medication is stopped ? this can develop within a few days. KNOW YOUR RESPONSIBILITIES It is important to know exactly how much and how often to take the opioid pain medications you are prescribed. Never take opioids in higher amounts or more often than prescribed. Do not combine opioids with alcohol or other drugs that cause drowsiness, such as benzodiazepines, also known as benzos, including diazepam and alprazolam, muscle relaxants or sleep aids. Never sell or share prescription opioids. This is illegal. Store opioids in a secure place and out of reach of others (including children, family, friends and visitors). The last page(s) of this document has been signed and retained as a CHART COPY Signatures Patient Education Materials High Blood Pressure, Established, Out of Control Urinary Retention, Male Camejo Catheter, Care Medication Leaflets tamsulosin, tamsulosin My discharge plan and instructions have been reviewed and explained to me and I,EDIL RANDOLPH understand my current condition and have read and understand these discharge instructions. I have received a written copy of the plan/instructions. If I have questions, I am aware that I should contact my doctor. Patient/Quality Improvement Consultant Signature: _ Date/Time: Relationship to Patient: Witness Name/Signature: Date/Time: [facility] course Narrative Note Date & Type Note Facility Hospital course Narrative No data available for this section [facility] Hospital Discharge instructions Note Date & Type Note Facility Hospital Discharge instructions No data available for this section [facility] Progress note Note Date & Type Note Facility Progress note No data available for this section [facility] Summary Purpose Family History No Family History Records FoundNo Family History Records Found No data available for this section No data available for this section No Family History Records Found Advance Directives No Advanced Directives Records FoundNo Advanced Directives Records FoundNo Advanced Directives Records Found Additional Source Comments (unrecognized sect ion and content) No Status Records FoundNo Status Records FoundNo Status Records Found INFORMATION SOURCE (unrecogn ized section and content) DATE CREATED AUTHOR AUTHOR'S ORGANIZ ATION 03/17/2021 [facility] DATE CREATED AUTHOR AUTHOR'S ORGANIZ ATION 01/17/2023 [facility] ([place]) Patient Care team informatio n (unrecognized section and content) Care Team Personnel Name: ONEIL SHAH MD Position: Physician Member Role: Primary Care Physician Address: Address: [address] [place] [address] Name: OLGA Beyer Position: RN Member Role: ED RN Name: BENNY CHILDERS MD Position: ED Physician Member Role: Attending Physician Address: Address: [address] Care Team Related Persons Name: GIUSEPPE RANDOLPH Address: [place] [address] [place] Name: ZHENG RANDOLPH Address: Home [address] [place] [address] Care Team Personnel Name: ONEIL SHAH MD Position: Physician Member Role: Primary Care Physician Address: Address: [address] [place] [address] Care Team Related Persons Name: GIUSEPPE RANDOLPH Address: Home [address] [place] [address] Name: ZHENG RANDOLPH Address: [address] FOR RECORDS PERTAINING TO PATIENTS WHO ARE OR HAVE BEEN ENROLLED IN A CHEMICAL DEPENDENCY/SUBSTANCEABUSE PROGRAM, SOME INFORMATION MAY BE OMITTED. This clinical summary was aggregated from multiple sources. Caution should be exercised in using it in the provision of clinical care. This summary normalizes information from multiple sources, and as a consequence, information in this document may materially change the coding, format and clinical context of patient data. In addition, data may be omitted in some cases. CLINICAL DECISIONS SHOULD BE BASED ON THE PRIMARY CLINICAL RECORDS. [employer] [facility]. provides no warranty or guarantee of the accuracy or completeness of information in this document.
--- NOTE | 2023-01-27 07:05 | EKG12_ITS ---
Test Reason : PRE OP Blood Pressure : / mmHG Vent. Rate : 084 BPM Atrial Rate : 084 BPM P-R Int : 140 ms QRS Dur : 148 ms QT Int : 384 ms P-R-T Axes : 064 066 038 degrees QTc Int : 453 ms Sinus rhythm with Premature supraventricular complexes Right bundle branch block Abnormal ECG No previous ECGs available Confirmed by TAMI AYALA, ASHLEY ([id number]), commercial production editor ALEXANDREA GALLARDO ([id number]) on 02/07/2023 10:17:27 AM Referred By: Rodrigo Courtney Confirmed By:ASHLEY GARRETT MD
[2023-01-27] MEDS: Lactated Ringers 1,000 ML 15 ML IV ×2 (07:16→11:19)
[2023-01-27 07:25] LABS: Hematocrit 42.5 % (40-54); Hemoglobin 14.4 g/dL (13.0-16.5); Mean Corp Hgb Conc 33.9 g/dL (32-36); Mean Corpuscular Hgb 31.6 pg (27.0-32.0); Mean Corpuscular Volume 93.4 fL (80-94); Mean Platelet Vol. 11.2 fl (6.2-12.0); Platelet Count 194 K/mm3 (150-450); RBC Distribution Width CV 12.9 % (11.6-14.6); RBC Distribution Width SD 44.2 fl (35.1-43.9); Red Blood Count 4.55 M/mm3 (4.6-6.2); White Blood Count 7.6 K/mm3 (4.4-11.0)
[2023-01-27 07:38] LABS: Anion Gap 4 (5-15); BUN 27 mg/dL (7-18); BUN/Creat Ratio 27.8 RATIO (10-20); Calcium,Total 9.3 mg/dL (8.5-10.1); Chloride 108 mmol/L (98-107); Creatinine, Serum 0.97 mg/dL (0.70-1.30); EST Glomerular Filtration Rate 83 mL/min (>60); Est Glom Filt Rate - Afr Amer 100 mL/min (>60); Estimated Creatinine Clearance 85.56 ml/min; Glucose 113 mg/dL (74-106); Potassium 4.2 mmol/L (3.5-5.1); Sodium Level 138 mmol/L (136-145)
--- NOTE | 2023-01-27 08:50 | PROS_PTH ---
PATHOLOGY RESULTS PATIENT: EDIL RANDOLPH LOC: MS3 U#:[id number] AGE/SX: 62/M ROOM: IA315 RE01/27/[address]: Dr. Rodrigo Courtney MD : 1960 BED: 1 DIS: 01/28/2023 SPEC #: [id number] RECD: 01/27/23 12:32 STATUS: BRO AGOSTO #: [id number] JAVAN: 01/27/23 08:[address]: Rodrigo Courtney DEPT: SURGICAL PATHOLOGY RECD BY: Jennifer Cortez ENTERED: 01/27/23 12:33 SP TYPE: TURP OTHR DR: LUZ MARINA RODRIGUEZ MD Tissues: Prostate, NOS Procedures: Surgery Specimen Level IV HEADER OPERATION: Transurethral resection of prostate with Olymp[employer] PRE-OP DIAGNOSIS: BPH TISSUE SUBMITTED: Prostate tissue MICROSCOPIC DIAGNOSIS Prostate tissue, transurethral resection: Benign prostatic hyperplasia, glandular and stromal type. Chronic inflammation. SJ:chilango 01/31/2023 MICROSCOPIC DESCRIPTION Slides are reviewed. GROSS DESCRIPTION Received is one container labeled with the patient's name and designated prostate tissue. The specimen consists of multiple irregular fragments of pink-kamara, rubbery, soft tissue that in aggregate weigh 7.7 gm and measure in aggregate 4.5 x 4.0 x 2.0 cm. The entire specimen is submitted in eight cassettes. / TIM:chilango 01/27/2023 TC:5 CPT: 06932
[2023-01-27] MEDS: Cefazolin 2 GM in 0.9% Normal Saline (100mL Bag) 100 ML IV (09:49)
--- NOTE | 2023-01-27 09:58 | DCINST_ITS ---
Discharge Instructions Diet Discharge Diet: No restrictions Activity Discharge Activity: Return to Normal Activity and May Not Drive (while taking narcotic pain medications.) Dressing / Incision Call your doctor if you observe: Fever of 101 or Higher Follow Up Care Please Follow Up With: Rodrigo Courtney MD When: Call [phone] for an appointment Test Results: Test results from this visit will be discussed in further detail at your follow- up appointment, if applicable. Discharge Plan Admission Primary Reason for Your Visit: Transurethral section of prostate Attending Provider: Rodrigo Courtney Primary Care Provider: LUZ MARINA RODRIGUEZ Discharge Orders/Prescriptions Prescriptions: New ciprofloxacin HCl [Cipro] 500 mg tablet 500 mg PO BID Qty: 10 0RF Continued losartan 50 mg tablet 50 mg PO BID Patient Comments: TAKE 2 TABLETS BY MOUTH EVERY DAY. tamsulosin 0.4 mg capsule 0.4 mg PO BID Patient Comments: TAKE 1 CAPSULE BY MOUTH DAILY Referrals / Follow Up: LUZ MARINA RODRIGUEZ MD [Primary Care Provider] - Rodrigo Courtney MD [Med Staff - Active Staff] - Disposition Disposition (needs filled in before D/C Order can be placed): Home, Self Care
--- NOTE | 2023-01-27 09:58 | PCM.HP.STD ---
HPI - General General Date of Service: 01/27/23 Chief Complaint: BPH with incomplete emptying and retention of urine HPI Narrative EDIL RANDOLPH, is a 62 M who presents plan to proceed with a transurethral resection of prostate PFS Medical History Alcohol use Back pain Cellulitis DDD (degenerative disc disease) High cholesterol History of echocardiogram History of edema Hypertension Injury of back Prostate disease Shortness of breath on exertion Smoker Wears glasses Home Medications losartan 50 mg tablet 50 mg PO BID 01/18/23 [History Last Taken Unknown] tamsulosin 0.4 mg capsule 0.4 mg PO BID 01/18/23 [History Last Taken Unknown] ciprofloxacin HCl 500 mg tablet (Cipro) 500 mg PO BID #10 tabs 01/27/23 [Rx Last Taken Unknown] Allergy/AdvReac Type Severity Reaction Status Date / Time No Known Allergies Allergy Verified 01/27/23 07:04 Surgical History Hx of colonoscopy Hx of total hip arthroplasty Social History Smoking Status: Current every day smoker tobacco type: cigarettes Vital Signs Vital Signs Vital Signs: 01/27/23 07:12 01/27/23 07:12 Temperature 97.1 F L Temperature Source Temporal Pulse Rate 87 Respiratory Rate 17 Respiratory Pattern Normal Blood Pressure 160/71 H Blood Pressure Mean 100 Blood Pressure Source Monitor Blood Pressure Position Semi-Fowlers Blood Pressure Location Left Arm Pulse Ox 96 Oxygen Delivery Method Room Air Weight Weight: 138.8 kg Body Mass Index (BMI) 41.5 Results Lab / Micro Data 01/27/23 07:15 01/27/23 07:15 Labs: Laboratory Results - last 24 hr 01/27/23 07:15: WBC 7.6, RBC 4.55 L, Hgb 14.4, Hct 42.5, MCV 93.4, MCH 31.6, MCHC 33.9, RDW Std Deviation 44.2 H, RDW Coeff of Lisa 12.9, Plt Count 194, MPV 11.2, Sodium 138, Potassium 4.2, Chloride 108 H, Carbon Dioxide 26.0, Anion Gap 4 L, BUN 27 H, Creatinine 0.97, Estim Creat Clear Calc 85.56, Est GFR (MDRD) Af Amer 100, Est GFR (MDRD) Non-Af 83, BUN/Creatinine Ratio 27.8 H, Glucose 113 H, Calcium 9.3
--- NOTE | 2023-01-27 10:37 | OP.PCM_ITS ---
Report of Operation Date of Procedure: 01/27/23 Pre-Operative Diagnosis: BPH with obstruction and incomplete bladder emptying Post-Operative Diagnosis: Same Surgery/Procedure Performed:: Transurethral section of prostate Description of Surgical Findings:: In the preoperative setting I discussed with the patient how the surgery would be done with expect afterwards. We discussed how a prostate resection is done and we discussed the risk of the surgery including, bleeding, infection, retrograde ejaculation, changes with ejaculation or intercourse,. We discussed the possibility that the resection of the prostate may not alleviate his urinary symptoms. We discussed the small risk of developing scar tissue along the urethral channel and strictures. We also discussed the chance of the prostate could grow back and he may need further surgery or treatment in the future for prostate problems. Patient was taken back to the operating room, timeout procedure was performed, he was identified and marked and placed on the operating room table. He underwent general anesthesia. He was placed in dorsolithotomy position. Penis and testicles were prepped and draped in usual sterile fashion. Went into the bladder using the visual obturator with a resectoscope. Once inside the bladder identified the right and left ureteral orifice. I then identified the prostate and the anatomy of the prostate. I marked out the area of the sphincter and the verumontanum was identified. I then proceeded with the prostate resection first resected the median lobe. And then resected the right lobe of the prostate. Then to resect the left lobe of the prostate. I then resected the apical tissue of the prostate. This was a complete resection of all obstructive tissue to improve voiding and relieve obstruction. I then made sure that there was no injury to the sphincter or the verumontanum was still intact. At the end of the resection all the chips were Ellik out of the bladder. I then identified the left and right ureteral orifice and these were confirmed to be in good position and effluxing and not injured. The resectoscope was removed, a 22 [place] catheter was placed into the bladder on continuous irrigation. And the urine was fairly light pink color and draining normally. He was taken back to the PACU in good condition. CPT 29409 Surgeon: Rodrigo Courtney Type of Anesthesia: General Drains: 22 [place] three-way [place]
[2023-01-27] MEDS: Ketorolac 15 MG/ML Vial IV ×2 (11:25→17:31)
[2023-01-27] MEDS: 0.9% Normal Saline (1000mL) 1,000 ML 125 ML IV ×2 (12:10→17:30)
[2023-01-27] MEDS: Ciprofloxacin 400 MG/200 ML BAG 200 MG IV ×2 (13:01→21:37)
[2023-01-27] MEDS: Losartan Potassium 50 MG Tablet PO (17:32)
[2023-01-27] MEDS: Docusate Sodium 100 MG Capsule 200 MG PO (21:37)
[2023-01-28 00:40] VITALS: BP 138/73; PULSE 69; RESP 18; TEMP 36.5; O2SAT 97
[2023-01-28] MEDS: Ketorolac 15 MG/ML Vial IV ×3 (00:48→11:52)
[2023-01-28] MEDS: 0.9% Normal Saline (1000mL) 1,000 ML 125 ML IV ×2 (01:48→10:08)
[2023-01-28 05:45] VITALS: BP 152/73; PULSE 64; RESP 16; TEMP 36.4; O2SAT 97
--- NOTE | 2023-01-28 09:39 | PCM.PN.GU ---
Subjective Subjective s/p TURP doing okay urine clearing up some blood d/c lujan home after he can void Objective Data Objective Data Vital Signs: Vital Signs Temp Pulse Resp BP Pulse Ox O2 Del Method 97.5 F L 64 16 152/73 H 97 Room Air 01/28/23 05:45 01/28/23 05:45 01/28/23 05:45 01/28/23 05:45 01/28/23 05:45 01/28/23 05:45 Oxygen Delivery Method Room Air Weight: 138.8 kg Body Mass Index (BMI) 41.5 Intake & Output: Intake and Output for Last 24 Hours 01/26/23 01/27/23 01/28/23 23:59 23:59 23:59 Intake Total 5941.25 / 5941.25 600 / 600 Output Total 7371 / 7371 1000 / 1000 Balance -1429.75 / -1429.75 -400 / -400 Lab / Micro Data 01/27/23 07:15 01/27/23 07:15
[2023-01-28 09:49] VITALS: BP 168/63; PULSE 81; RESP 20; TEMP 36.7; O2SAT 96
[2023-01-28] MEDS: Ciprofloxacin 400 MG/200 ML BAG 200 MG IV (09:52)
[2023-01-28] MEDS: Tamsulosin HCl 0.4 MG Capsule 0.400000000000000022 MG PO (09:52)
[2023-01-28] MEDS: Docusate Sodium 100 MG Capsule 200 MG PO (09:52)
[2023-01-28] MEDS: Losartan Potassium 50 MG Tablet PO (09:53)
[2023-01-28] MEDS: 0.9% Saline Lock 10 ML Syringe IV (11:52)
[2023-01-28 12:40] VITALS: PULSE 80
[2023-01-28] MEDS: Tamsulosin HCl 0.4 MG Capsule 0.800000000000000044 MG PO (14:41)
== END 2023-01-28 16:03 | disposition home or self-care (01) ==
LOC: SDC 13:09 → MS3 13:09
PROVIDERS: Anesthesiology; Admitting Provider Urology; PCP Internal Medicine; Referring Provider Urology; Visit Provider Urology
PROC: 0VT08ZZ Resection of Prostate, Via Natural or Artificial Opening Endoscopic (ICD-10-PCS; CPT 52601; principal; 2023-01-27 08:40)
DX: N40.1 Benign prostatic hyperplasia with lower urinary tract symptoms (principal); R33.8 Other retention of urine; I10 Essential (primary) hypertension; E78.00 Pure hypercholesterolemia, unspecified; F17.210 Nicotine dependence, cigarettes, uncomplicated; Z79.899 Other long term (current) drug therapy; R39.14 Feeling of incomplete bladder emptying
CPT/HCPCS: 52601; 80048; 85027; 88305; 93005; 96361; 96365; 96366; 99221; 99406; J7030; J7120; A4216; G0378; J0744; J2405

== ENCOUNTER → 2023-06-12 | Outpatient (CLI) | payer OTHER, SELFPAY ==
[2023-06-12 10:40] LABS: PSA,Total - Annual Screen 0.38 ng/mL (0.00-4.00)
== END | disposition home or self-care (01) ==
LOC: LAB 08:13
PROVIDERS: PCP Internal Medicine; Referring Provider Urology; Visit Provider Urology
DX: Z12.5 Encounter for screening for malignant neoplasm of prostate (principal)
CPT/HCPCS: 36415; 84153; G0103